=== PATIENT | male | born 1990 | race Caucasian/White ===

== ENCOUNTER 2017-11-26 03:56 | Emergency (ER) | payer OTHER ==
[2017-11-26] MEDS ORDERED: Diphtheria,Pertussis(Acell),Tetanus Vaccine 0.5 ML SDV IM ONE (04:44)
--- NOTE | 2017-11-26 06:27 | ER ---
DATE SEEN: 11/26/2017 TIME SEEN: 0430 hours. REASON FOR VISIT: Laceration. HISTORY OF PRESENT ILLNESS: This is a 27-year-old male with a laceration to the ring finger after a block of cement fell on him at work this morning. PAST MEDICAL HISTORY: He is not up-to-date on tetanus. ALLERGIES: He has none. PHYSICAL EXAMINATION: VITAL SIGNS: Blood pressure 149/95 and a temp of 98.3. EXTREMITIES: The right ring finger reveals a laceration on the medial aspect of the distal phalanx about 1 cm in size. There is soft tissue swelling around it and also on the distal phalanx of the middle finger. DIAGNOSTIC STUDIES: X-ray showed a distal phalanx fracture of the ring finger. IMPRESSION: 1. Distal phalanx fracture of the right hand. 2. Laceration, finger, simple. PLAN: After soaking, a digital block was obtained and 4 stitches of Prolene were placed. The patient's tetanus was addressed and updated accordingly. The patient was advised to remove stitches in 1 week, but followup next week with primary care clinic to discuss a referral to Hand surgery if it is deemed necessary. Also, discussed sublingual hematoma that might form on the middle finger for which he should also be seen if the pain and throbbing gets worse. /[id number] KARAN/VENKATESH
--- NOTE | 2017-11-26 11:55 | CR ---
INDICATION: Smashed right 4th finger with a brick. RIGHT HAND: Three views of the right hand revealed a comminuted fracture of the ungual tuft of the 4th digit with separation of the fracture fragments maximally about 1.7 mm. There is also dorsal offset of the chip fracture fragments approximately 1 mm. No other bone or joint abnormality was identified. MTDD
== END 2017-11-26 05:15 | disposition home or self-care (01) ==
LOC: FB.ED 03:56
DX: S62.634A Displaced fracture of distal phalanx of right ring finger, initial encounter for closed fracture (principal); S61.214A Laceration without foreign body of right ring finger without damage to nail, initial encounter; Z23 Encounter for immunization; W20.8XXA Other cause of strike by thrown, projected or falling object, initial encounter
CPT/HCPCS: 12001; 12002; 73130-RT; 90471; 90472; 90715; 99283